=== PATIENT | female | born 1970 | race African-American/Black ===

== ENCOUNTER 2019-04-23 19:47 | Emergency (ER) | payer SELFPAY ==
[~2019-04-23] VITALS: Ht 170.2 cm; Wt 122.5 kg
[2019-04-23] MEDS ORDERED: PREDNISONE2.5 MG ORAL (20:01)
[2019-04-23] MEDS ORDERED: LISINOPRIL5 MG ORAL (20:01)
[2019-04-23] MEDS ORDERED: CATAPRES0.2 MG ORAL (20:01)
[2019-04-23] MEDS ORDERED: CELLCEPT500 MG ORAL (20:02)
[2019-04-23] MEDS ORDERED: PROGRAF5 MG PO (20:02)
[2019-04-23] MEDS ORDERED: SYNTHROID150 MCG ORAL (20:03)
--- NOTE | 2019-04-23 20:15 | NUR ---
ED Nurse Note: Recieved pt from home, here with c/o MD states to come due to abnormal olabs that ritesh drawn 2 days ago in [place] where she lives, pt denies any s/s, states her thyroid level is off, pt has hx of kidney transplant anad denies any distress or s/s of discomfort, no cp, no sob or labored breathing, tp gowned and palced on cardiac monitoring, will resume care as ordered and closely monitor, iv line placed and labs drawn and sent.
--- NOTE | 2019-04-23 20:23 | Emergency Room Report ---
History of Present Illness General Chief Complaint: Abnormal Labs Source: Patient (Marquis Coe MD) Present Illness HPI Patient was called and told to go to the emergency room immediately because of abnormal thyroid findings. Patient has several different complaints of feeling tired, increased back pain, feverish without documented temperature, some chest heaviness but no pain. She is post thyroidectomy a year ago. Initially she had difficulty with her calcium but this is resolved. She is taking thyroid replacement at this time. Lumbar pain is something new. She is taking Aleve for that. She feels some stiffness. The discomfort does not radiate down her legs She says tunnel has not been helping. (Marquis Coe MD) Allergies: Coded Allergies: No Known Allergies (Unverified , 04/23/19) Patient History Past Medical History: see triage record Past Surgical History: other - Thyroidectomy Social History: Denies: smoking, alcohol use, drug use Social History Narrative Visiting from [place] Reviewed Nursing Documentation: PMH: Agreed; PSxH: Agreed (Marquis Coe MD) Nursing Documentation-PMH Past Medical History: No History, Except For Hx Hypertension: Yes (Marquis Coe MD) Review of Systems All Other Systems: negative except mentioned in HPI (Marquis Coe MD) Physical Exam Vital Signs Date Time Temp Pulse Resp B/P (MAP) Pulse Ox O2 Delivery O2 Flow Rate FiO2 04/23/19 19:51 98.6 62 16 162/96 (118) 99 Room Air Sp02 EP Interpretation: reviewed, normal General Appearance: well appearing, no apparent distress, GCS 15 Head: normocephalic, atraumatic Eyes: bilateral eye normal inspection, bilateral eye PERRL, bilateral eye EOMI ENT: moist mucus membranes Neck: full range of motion, supple Respiratory: lungs clear, normal breath sounds Cardiovascular #1: regular rate, rhythm Cardiovascular #2: 2+ radial (R) Gastrointestinal: normal inspection, normal bowel sounds, non tender, no mass, non-distended, overweight Genitourinary: no CVA tenderness Musculoskeletal: gait/station normal, normal range of motion, tender - Lumbar area muscle no bony tenderness Neurologic: alert, oriented x3, motor strength/tone normal, DTRs symmetric, sensory intact, speech normal Psychiatric: mood/affect normal Skin: no rash (Marquis Coe MD) Vital Signs Date Time Temp Pulse Resp B/P (MAP) Pulse Ox O2 Delivery O2 Flow Rate FiO2 04/23/19 19:51 98.6 62 16 162/96 (118) 99 Room Air Sp02 EP Interpretation: reviewed, normal General Appearance: well appearing, no apparent distress, alert Head: normocephalic, atraumatic Eyes: bilateral eye PERRL, bilateral eye EOMI ENT: uvula midline, moist mucus membranes Neck: supple, thyroid normal, supple/symm/no masses Respiratory: lungs clear, no respiratory distress, no retraction, no accessory muscle use Cardiovascular #1: normal peripheral pulses, regular rate, rhythm, no edema, no gallop, no murmur Gastrointestinal: non tender, soft, no guarding, no rebound Musculoskeletal: normal inspection Neurologic: alert, oriented x3 Psychiatric: mood/affect normal Skin: no rash, warm/dry (Manav Dior MD) Medical Decision Making Diagnostic Impression: Primary Impression: Hypothyroidism Qualified Codes: E03.9 - Hypothyroidism, unspecified Additional Impressions: Lumbar pain Renal insufficiency Bradycardia ER Course Patient post thyroidectomy taking thyroid replacement was told by her doctor to come into the emergency department. Differential includes hyperthyroidism, hypothyroidism, electrolyte imbalance, calcium disorder amongst others. She also is complaining about low back pain. Evaluation with be with EKG, chest x- ray and labs including thyroid function tests and calcium. No treatment indicated at this time. Patient placed on a electronic device monitor. EKG sinus bradycardia with nonspecific ST-T wave changes rate of 58. Labs pending. Patient signed out to Dr. Dior. (Marquis Coe MD) ER Course 49 year old female presents for abnormal lab test, high TSH, was told to come into doctor for eval. Patient asymptomatic, no e/o of clinical hypothyroidism, however t4 t3 lower than expected Will adjust synthyroid, she currently takes 150 mcg, will increase to 200mcg daily and have her recheck TSH Dispo home w/ return precautions Laboratory Tests Test 04/23/19 20:30 04/23/19 21:02 04/23/19 21:05 White Blood Count 6.5 K/UL (4.8-10.8) Red Blood Count 5.47 M/UL (4.20-5.40) H Hemoglobin 15.6 G/DL (12.0-16.0) Hematocrit 47.2 % (37.0-47.0) H Mean Corpuscular Volume 86 FL (80-99) Mean Corpuscular Hemoglobin 28.4 PG (27.0-31.0) Mean Corpuscular Hemoglobin Concent 33.0 G/DL (32.0-36.0) Red Cell Distribution Width 12.7 % (11.6-14.8) Platelet Count 141 K/UL (150-450) L Mean Platelet Volume 7.4 FL (6.5-10.1) Neutrophils (%) (Auto) 71.3 % (45.0-75.0) Lymphocytes (%) (Auto) 15.4 % (20.0-45.0) L Monocytes (%) (Auto) 10.4 % (1.0-10.0) H Eosinophils (%) (Auto) 1.9 % (0.0-3.0) Basophils (%) (Auto) 1.0 % (0.0-2.0) Prothrombin Time 10.3 SEC (9.30-11.50) Prothrombin Time INR 1.0 (0.9-1.1) PTT 29 SEC (23-33) Sodium Level 143 MMOL/L (136-145) Potassium Level 3.8 MMOL/L (3.5-5.1) Chloride Level 109 MMOL/L (98-107) H Carbon Dioxide Level 25 MMOL/L (21-32) Anion Gap 9 mmol/L (5-15) Blood Urea Nitrogen 24 mg/dL (7-18) H Creatinine 1.4 MG/DL (0.55-1.30) H Estimate Glomerular Filtration Rate 39.8 mL/min (>60) Glucose Level 90 MG/DL (74-106) Calcium Level 8.6 MG/DL (8.5-10.1) Total Bilirubin 0.4 MG/DL (0.2-1.0) Aspartate Amino Transferase (AST) 25 U/L (15-37) Alanine Aminotransferase (ALT) 23 U/L (12-78) Alkaline Phosphatase 67 U/L (46-116) Total Creatine Kinase 392 U/L (26-308) H Troponin I 0.000 ng/mL (0.000-0.056) Pro-B-Type Natriuretic Peptide 189 pg/mL (0-125) H Total Protein 7.4 G/DL (6.4-8.2) Albumin 3.7 G/DL (3.4-5.0) Globulin 3.7 g/dL Albumin/Globulin Ratio 1.0 (1.0-2.7) Thyroid Stimulating Hormone (TSH) 44.221 uiU/mL (0.358-3.740) Free Thyroxine 0.76 NG/DL (0.76-1.46) Triiodothyonine (T3) Pending Free Triiodothyronine 1.2 pg/mL (2.3-4.2) L Urine Color Leeanna Urine Appearance Slightly cloudy Urine pH 6 (4.5-8.0) Urine Specific [place] 1.020 (1.005-1.035) Urine Protein Negative (NEGATIVE) Urine Glucose (UA) Negative (NEGATIVE) Urine Ketones Negative (NEGATIVE) Urine Blood 1+ (NEGATIVE) H Urine Nitrite Negative (NEGATIVE) Urine Bilirubin Negative (NEGATIVE) Urine Ictotest Negative (NEGATIVE) Urine Urobilinogen 1 MG/DL (0.0-1.0) H Urine Leukocyte Esterase Negative (NEGATIVE) Urine RBC 5-10 /HPF (0 - 2) H Urine WBC 2-4 /HPF (0 - 2) Urine Squamous Epithelial Cells Many /LPF (NONE/OCC) H Urine Bacteria Many /HPF (NONE) H Urine Yeast Moderate /HPF (NONE) H (Manav Dior MD) EKG Diagnostic Results Rate: bradycardiac Rhythm: NSR ST Segments: no acute changes (Marquis Coe MD) Rhythm Strip Diag. Results EP Interpretation: yes Rhythm: no PVC's, no ectopy, other - krystal 58 (Marquis Coe MD) Chest X-Ray Diagnostic Results Chest X-Ray Diagnostic Results : Chest X-Ray Ordered: Yes # of Views/Limited/Complete: 1 View Indication: Shortness of Breath EP Interpretation: Yes Interpretation: no consolidation, no effusion, no pneumothorax, no acute cardiopulmonary disease Impression: No acute disease Electronically Signed by: Manav Dior MD (Manav Dior MD) Status: improved (Marquis Coe MD) Disposition: HOME, SELF-CARE Condition: Stable Scripts Levothyroxine Sodium (SYNTHROID) 200 Mcg Tablet 200 MCG ORAL DAILY, #30 TAB Take in the morning on an empty stomach, at least 30 minutes before food. Prov: Manav Dior MD 04/23/19 Referrals: [facility] Khoaisela Garcia. [facility] Patient Instructions: Hypothyroidism Additional Instructions: The patient was provided with discharge instructions, notified to follow-up with a primary care doctor and or specialist in the next 24-48 hours, and to return to the ED if they have worsening of their symptoms. Please note that this report is being documented using [employer] technology. This can lead to erroneous entry secondary to incorrect interpretation by the dictating instrument. YOUR DOSE WAS INCREASED TO 200MCG DAILY. PLEASE HAVE A RECHECK OF TSH FREE T4 AND FREE T3 AFTER 2 WEEKS. FOLLOW-UP WITH PCP MAY TAKE LIDOCAINE PATCHES FOR CHRONIC BACK PAIN. Marquis Coe MD Apr 23, 2019 20:23 Manav Dior MD Apr 23, 2019 23:25
[2019-04-23 20:55] LABS: EOSINOPHILS % (AUTO) 1.9 % (0.0-3.0); HEMATOCRIT 47.2 % (37.0-47.0); HEMOGLOBIN 15.6 G/DL (12.0-16.0); LYMPHOCYTES % (AUTO) 15.4 % (20.0-45.0); MEAN CORPUSCULAR VOLUME 86 FL (80-99); MONOCYTES % (AUTO) 10.4 % (1.0-10.0); NEUTROPHILS % (AUTO) 71.3 % (45.0-75.0); PLATELET COUNT 141 K/UL (150-450); RED BLOOD COUNT 5.47 M/UL (4.20-5.40); RED CELL DISTRIBUTION WIDTH 12.7 % (11.6-14.8); WHITE BLOOD COUNT 6.5 K/UL (4.8-10.8)
[2019-04-23 21:11] LABS: ANION GAP 9 mmol/L (5-15); BLOOD UREA NITROGEN 24 mg/dL (7-18); CALCIUM 8.6 MG/DL (8.5-10.1); CARBON DIOXIDE 25 MMOL/L (21-32); CHLORIDE 109 MMOL/L (98-107); CREATININE 1.4 MG/DL (0.55-1.30); POTASSIUM 3.8 MMOL/L (3.5-5.1); SODIUM 143 MMOL/L (136-145)
[2019-04-23 21:23] LABS: ALANINE AMINOTRANSFERASE 23 U/L (12-78); ALBUMIN 3.7 G/DL (3.4-5.0); ALKALINE PHOSPHATASE 67 U/L (46-116); ASPARTATE AMINO TRANSFERASE 25 U/L (15-37); BILIRUBIN,TOTAL 0.4 MG/DL (0.2-1.0); CREATINE KINASE 392 U/L (26-308)
[2019-04-23 21:27] LABS: APPEARANCE,URINE SLIGHTLY CLOUDY; BILIRUBIN, URINE NEGATIVE (NEGATIVE); COLOR,URINE AMBER; GLUCOSE, URINE (UA) NEGATIVE (NEGATIVE); KETONES,URINE NEGATIVE (NEGATIVE); LEUKOCYTE ESTERASE ,URINE NEGATIVE (NEGATIVE); NITRITE,URINE NEGATIVE (NEGATIVE); PH,URINE 6 (4.5-8.0); PROTEIN,URINE NEGATIVE (NEGATIVE); UROBILINOGEN,URINE 1 MG/DL (0.0-1.0)
[2019-04-23 21:30] VITALS: BP 155/86
--- NOTE | 2019-04-23 23:00 | NUR ---
ED Nurse Note: Pt in bed sleeping, no distress noted, denies pain, no sob or labored breathing, v/s stable, will continue to monitor while waiting for all lab results.
[2019-04-23] MEDS ORDERED: SYNTHROID200 MCG ORAL (23:18)
[2019-04-24] VITALS: BP 151/77
--- NOTE | 2019-04-24 | NUR ---
ER DISCHARGE NOTE: Patient is cleared to be discharged per ERMD, pt is aox4, on room air, with stable vital signs. pt was given dc and prescription instructions, pt was able to verbalize understanding, pt id band and iv site removed without complications. pt is able to ambulate with steady gait. pt took all belongings.
[2019-04-24 00:05] VITALS: BP 155/86
--- NOTE | 2019-04-24 13:10 | Diagnostic Imaging Report ---
Indication: Dyspnea Comparison: None A single view chest radiograph was obtained. Findings: No definite infiltrate or pulmonary vascular congestion identified. The heart is enlarged. The aorta is mildly enlarged consistent with atherosclerotic vascular disease. The bones are osteopenic. Impression: No acute disease
--- NOTE | 2019-04-25 07:26 | Cardiology Report ---
APPROVED REPORT EKG Measurement Heart [id number] Sinus bradycardia Cannot rule out Anterior infarct, age undetermined Abnormal ECG
== END 2019-04-24 00:05 | disposition home or self-care (01) ==
LOC: EMR 20:34
DX: E89.0 Postprocedural hypothyroidism (principal); M54.5 Low back pain; R00.1 Bradycardia, unspecified; N28.9 Disorder of kidney and ureter, unspecified; I10 Essential (primary) hypertension; R06.02 Shortness of breath
CPT/HCPCS: 36415; 71045; 80053; 81003; 82550; 83880; 84439; 84443; 84481; 84484; 85025; 85610; 85730; 87086; 93005; 99284